=== PATIENT | female | born 1980 | race Two or more races ===

== ENCOUNTER → 2020-05-15 12:36 | Outpatient (CLI) | payer OTHER, SELFPAY ==
[2020-05-15 13:47] LABS: Coronavirus 19 IgG Antibody Negative (Negative); Coronavirus 19 IgM Antibody Negative (Negative)
[2020-05-15 13:48] LABS: HCG Qualitative, Serum Negative (Negative)
== END ==
PROVIDERS: Visit Provider Internal Medicine Gastroenterology
DX: Z01.818 Encounter for other preprocedural examination (principal); Z20.822 Contact with and (suspected) exposure to COVID-19; Z12.11 Encounter for screening for malignant neoplasm of colon; K59.00 Constipation, unspecified
CPT/HCPCS: 36415; 84703; 86328

== ENCOUNTER 2020-05-17 12:14 | Day surgery (SDC) | payer OTHER, SELFPAY ==
[2020-05-17 12:40] VITALS: BP 111/70; PULSE 82; RESP 18; TEMP 36.7; O2SAT 99
--- NOTE | 2020-05-17 13:32 | P.PCN_ITS ---
[facility] Procedure Note Procedure Note:: Colonoscopy Procedure Report: Colonoscopy Endoscopist: Wilbur Chu II, MD Referring physician: Dionna Diamond MD Date of Procedure: May 17, 2020 Equipment: Olympus 180 variable stiffness pediatric colonoscope Sedation: MAC sedation Indication: Mrs. Diamond is a 39-year-old female with longstanding irritable bowel syndrome with constipation as well as functional dyspepsia. The patient does take combined MiraLAX plus Konsyl daily. She was formerly on domperidone. The patient does report gassiness, bloating and some intermittent esophageal symptoms with globus and swallowing difficulties. She also has some bowel irregularity with incomplete bowel evacuation. Her paternal great uncle had colon cancer. She has never had a colonoscopy. She reports no rectal bleeding or weight loss. Procedure: Prior to the procedure, a history and physical exam was performed, and patient's medications and allergies were reviewed. The risks, benefits and alternatives of the sedation and procedure were discussed with the patient. All questions were answered and informed consent was obtained. The patient was brought to the procedure room. Patient identification and proposed procedure were verified by the physician and the nurse. The patient was placed in a left lateral decubitus position and the scope was passed under direct vision. Throughout the procedure, the patient's blood pressure, pulse, and oxygen saturations were monitored continuously. The colonoscopy was accomplished without difficulty. The patient tolerated the procedure well. Findings: On digital rectal examination there was normal rectal tone. There were no external hemorrhoids. There was no evidence of a rectocele or angulated puborectalis. There was normal size rectal vault. The colonoscope was introduced through the anal canal to the rectum and advanced to the cecum. The ileocecal valve and appendiceal orifice were identified. The scope was advanced a short distance into the ileum which appeared grossly normal. The scope was then withdrawn into the colon. The cecum, ascending, transverse, descending, sigmoid and rectum were grossly normal. There were no mucosal abnormalities identified. Upon retroflexion within the rectum there were grade 1 internal hemorrhoids.The preparation was excellent throughout with [place] Preparation Score of 9. The cecal time was 11 minutes. Impression: 1. Normal colonoscopy with intubation of the terminal ileum Plan: Due to the patient's long-term IBS with constipation and functional dyspepsia, I would recommend Zelnorm 6 mg by mouth twice daily. I would also consider buspirone nightly or twice daily. I will await sucrose breath testing.
[2020-05-17 13:33] VITALS: BP 76/48; PULSE 93; RESP 18; TEMP 36.2; O2SAT 100
[2020-05-17 13:43] VITALS: BP 77/47; PULSE 70; RESP 18; TEMP 36.2; O2SAT 98
[2020-05-17 13:53] VITALS: BP 107/66; PULSE 76; RESP 18; TEMP 36.2; O2SAT 100
[2020-05-17 14:03] VITALS: BP 101/72; PULSE 65; RESP 18; TEMP 36.2; O2SAT 100
[2020-05-17 14:25] VITALS: BP 101/78; PULSE 66; RESP 18; TEMP 36.2; O2SAT 100
--- NOTE | 2020-05-17 15:55 | HMH.ANESCL ---
[facility] Anesthesia Checklist - Patient Identification Patient Identification: Arm Band, Verbal (Name & ) - Structural Data Admitted From: Home Planned Operative Procedure/s: colon Consent for Planned Operative Procedure(s) Verified: Yes Verified Documents: Surgical Consent - Anesthesia Plan Anesthesia Risk discussed: Yes Anesthesia Plan: Verified ASA Class: I Anesthesia Type: General [facility] History I have reviewed the patient's past medical history: Yes Medical History: Denies:: Cancer, Diabetes Mellitus Type 1, Diabetes Mellitus Type 2, MRSA, Seizures *Have you ever received a pneumonia vaccine?: No *Have you received a flu vaccine this season?: No Anesthesia experience/problems:: none Amputation: No Fractures: No - *Social History Alcohol Intake: never Substance Use Type: denies use *Occupational Status:: employed Housing: house Household Members: spouse *Travel in the last 8 weeks: None Family Hx:: Unable to obtain, No significant family history
== END 2020-05-17 14:35 | disposition home or self-care (01) ==
LOC: OUTP 12:21
PROVIDERS: Visit Provider Internal Medicine Gastroenterology
PROC: 0DJD8ZZ Inspection of Lower Intestinal Tract, Via Natural or Artificial Opening Endoscopic (ICD-10-PCS; CPT 45378; principal; 2020-05-17 13:00)
DX: R14.0 Abdominal distension (gaseous) (principal); R19.4 Change in bowel habit; K30 Functional dyspepsia; K58.1 Irritable bowel syndrome with constipation
CPT/HCPCS: 45378